=== PATIENT | female | born 1990 | race Caucasian/White ===

== ENCOUNTER 2017-04-13 15:17 | Emergency (ER) | payer MEDICAID ==
--- NOTE | 2017-04-13 16:19 | ER Document Report ---
ED Medical Screen (RME) - General Chief Complaint: Vag Bleeding, +preg <12wks Stated Complaint: VAGINAL BLEEDING Time Seen by Provider: 04/13/17 16:14 Notes: Patient with positive test and last menstrual period of 02/25/2017 complains of onset about 2 PM today of pelvic cramps and bright red bleeding. She is A0 Her LMP is not absolute as she was on control pills and spotting while she is on the pill. I have greeted and performed a rapid initial assessment of this patient. A comprehensive ED assessment and evaluation of the patient, analysis of test results and completion of the medical decision making process will be conducted by additional ED providers. TRAVEL OUTSIDE OF THE [place] IN LAST 30 DAYS: No - Related Data Allergies/Adverse Reactions: No Known Allergies Allergy (Unverified 04/13/17 15:23) Past Medical History - General Last Menstrual Period: 02/25/17 Renal/ Medical History: Denies: Hx Peritoneal Dialysis Physical Exam - Vital signs Vitals: Temp Pulse Resp BP Pulse Ox 98.3 F 80 16 110/75 100 04/13/17 15:20 04/13/17 15:20 04/13/17 15:20 04/13/17 15:20 04/13/17 15:20 Course - Vital Signs Vital signs: Temp Pulse Resp BP Pulse Ox 98.3 F 80 16 110/75 100 04/13/17 15:20 04/13/17 15:20 04/13/17 15:20 04/13/17 15:20 04/13/17 15:20
[2017-04-13 17:03] LABS: ABSOLUTE EOSINOPHILS # (AUTO) 0.3 10^3/uL (0.0-0.6); ABSOLUTE LYMPHOCYTES (AUTO) 1.9 10^3/uL (0.5-4.7); ABSOLUTE MONOCYTES (AUTO) 0.7 10^3/uL (0.1-1.4); ABSOLUTE NEUT (AUTO) 7.7 10^3/uL (1.7-8.2); BASOPHILS % (AUTO) 0.2 % (0-2); EOSINOPHILS % (AUTO) 2.8 % (0-6); HEMATOCRIT 37.3 % (36.0-47.0); HGB HCT DIFFERENCE 1.7; LYMPHOCYTES % (AUTO) 17.6 % (13-45); MEAN CORPUSCULAR HEMOGLOBIN 30.5 pg (27.0-33.4); MEAN CORPUSCULAR HGB CONC 34.7 g/dL (32.0-36.0); MEAN CORPUSCULAR VOLUME 88 fl (80-97); MONOCYTES % (AUTO) 6.3 % (3-13); RED BLOOD COUNT 4.25 10^6/uL (3.72-5.28); RED CELL DISTRIBUTION WIDTH 12.4 % (11.5-14.0); SEGMENTED NEUTROPHILS % (AUTO) 73.1 % (42-78); WHITE BLOOD COUNT 10.6 10^3/uL (4.0-10.5)
--- NOTE | 2017-04-13 19:01 | RADIOLOGY REPORT (SQ) ---
EXAM DESCRIPTION: U/S OB TRANSVAGINAL W/O DOP COMPLETED DATE/TIME: 04/13/2017 6:22 pm REASON FOR STUDY: cramps, bleeding, LMP 02/25/2017 COMPARISON: None. TECHNIQUE: Transvaginal static and realtime grayscale images acquired of the pelvis. Additional bradley cted spectral and color Doppler images recorded. All images stored on PACs. bHCG: Not available. LIMITATIONS: None. FINDINGS: FETUS: Living intrauterine . EGA: 7 weeks 5 days. NICOLÁS: 11/25/2017. FHR: 173 beats per minute. SUBCHORIONIC BLEED: No. SIZE OF BLEED: Not applicable. UTERUS: No masses. No anomalies. CERVICAL LENGTH: 2.7 cm. Closed. RIGHT ADNEXA: There is a corpus luteal cyst measured 2.2 x 1.8 x 2.0 cm. No adnexal free fluid. No adnexal masses. LEFT ADNEXA: Normal ovary with normal vascular flow. No adnexal free fluid. No adnexal masses. FREE FLUID: None. OTHER: No other significant finding. IMPRESSION: LIVING INTRAUTERINE . EGA 7 WEEKS 5 DAYS. Trimester of : First - 0 to 13 weeks. TECHNICAL DOCUMENTATION: JOB ID: [id number] [employer]- All Rights Reserved
--- NOTE | 2017-04-13 19:20 | ER Document Report ---
ED GI/ - General Chief Complaint: Vag Bleeding, +preg <12wks Stated Complaint: VAGINAL BLEEDING Time Seen by Provider: 04/13/17 16:14 Mode of Arrival: Ambulatory Information source: Patient Notes: Pt is a 27 year old female to the ER today for vaginal bleeding that began about an hour prior to arrival. Patient states it was bright red blood, no clots. She states it is starting to subside at this time. She and her did have sexual intercourse this morning. She states that she is having some cramping only on the right side of her abdomen. TRAVEL OUTSIDE OF THE [place] IN LAST 30 DAYS: No - Related Data Allergies/Adverse Reactions: No Known Allergies Allergy (Unverified 04/13/17 15:23) Past Medical History - General Information source: Patient Last Menstrual Period: 02/25/17 - Social History Smoking Status: Never Smoker Chew tobacco use (# tins/day): No Frequency of alcohol use: None Drug Abuse: None Family History: Reviewed & Not Pertinent Patient has suicidal ideation: No Patient has homicidal ideation: No Renal/ Medical History: Denies: Hx Peritoneal Dialysis Surgical Hx: Negative - Immunizations Hx Diphtheria, Pertussis, Tetanus Vaccination: Yes Review of Systems - Review of Systems Constitutional: No symptoms reported EENT: No symptoms reported Cardiovascular: No symptoms reported Respiratory: No symptoms reported Gastrointestinal: No symptoms reported Genitourinary: No symptoms reported Female Genitourinary: See HPI Musculoskeletal: No symptoms reported Skin: No symptoms reported Hematologic/Lymphatic: No symptoms reported Neurological/Psychological: No symptoms reported Physical Exam - Vital signs Vitals: Temp Pulse Resp BP Pulse Ox 98.3 F 80 16 110/75 100 04/13/17 15:20 04/13/17 15:20 04/13/17 15:20 04/13/17 15:20 04/13/17 15:20 - Notes Notes: PHYSICAL EXAMINATION: GENERAL: Well-appearing and in no acute distress. HEAD: Atraumatic, normocephalic. EYES: Pupils equal round and reactive to light, extraocular movements intact, sclera anicteric, conjunctiva are normal. NECK: Normal range of motion, supple without lymphadenopathy LUNGS: CTAB and equal. No wheezes rales or rhonchi. HEART: Regular rate and rhythm without murmurs ABDOMEN: Soft, no tenderness. No guarding, no rebound BACK: no vertebral tenderness, normal ROM GI/: no CVA tenderness EXTREMITIES: Normal range of motion, no pitting edema. No cyanosis. NEUROLOGICAL: Cranial nerves grossly intact. Normal sensory/motor exams. PSYCH: Normal mood, normal affect. SKIN: Warm, Dry, normal turgor, no rashes or lesions noted Course - Re-evaluation Re-evalutation: 04/13/17 19:21 Ultrasound revealed a intrauterine at 178 bpm, 7 weeks and 5 days. Right-sided ovarian cyst. No subchorionic bleed. I do believe that her bleeding is from a sexual intercourse. I did advise her bed rest and no sexual intercourse for a few days. - Vital Signs Vital signs: Temp Pulse Resp BP Pulse Ox 98.2 F 68 16 125/62 98 04/13/17 19:37 04/13/17 19:37 04/13/17 19:37 04/13/17 19:37 04/13/17 19:37 - Laboratory Result Diagrams: 04/13/17 16:25 Laboratory results interpreted by me: 04/13/17 16:25 WBC 10.6 H Discharge - Discharge Clinical Impression: Vaginal bleeding before 22 weeks gestation Condition: Stable Disposition: HOME, SELF-CARE Additional Instructions: Return immediately for any new or worsening symptoms. Follow up with obgyn, call tomorrow to make followup appointment. Referrals: [facility] [Provider Group] - Follow up as needed
[2017-04-13 19:42] VITALS: BP 125/62
== END 2017-04-13 19:38 | disposition home or self-care (01) ==
LOC: ER 15:17
DX: O20.9 Hemorrhage in early pregnancy, unspecified (principal); O34.81 Maternal care for other abnormalities of pelvic organs, first trimester; N83.11 Corpus luteum cyst of right ovary; Z3A.01 Less than 8 weeks gestation of pregnancy
CPT/HCPCS: 36415; 76817; 85025; 86900; 86901; 99284